=== PATIENT | female | born 1995 | race Caucasian/White ===

== ENCOUNTER 2017-04-18 00:59 | Inpatient (IN) | payer OTHER ==
[~2017-04-18] VITALS: Ht 167.6 cm; Wt 70.3 kg
[2017-04-18] MEDS ORDERED: Methylergonovine 0.2 mg/mL Inj IM PRN ×2 (01:35→19:55)
[2017-04-18] MEDS ORDERED: Sodium Chloride LOK Flush 10 mL Syringe IVFLUSH PRN (01:35)
[2017-04-18] MEDS ORDERED: Oxytocin 10 Unit/mL Inj IM PRN ×2 (01:35→19:55)
[2017-04-18] MEDS ORDERED: Oxytocin 30 Units/500 mL LR 30 UNITS in IV Premix 1 EACH IV PRN ×2 (01:35→19:55)
[2017-04-18] MEDS ORDERED: Hemorrhage Kit, Post Partum XX ONE ×2 (01:35→19:55)
[2017-04-18] MEDS ORDERED: Carboprost 250 mCg/mL Inj IM PRN ×2 (01:35→19:55)
[2017-04-18 02:26] LABS: Mean Corpuscular Hemoglobin 28.7 pg (27.0-35.0); Mean Corpuscular Volume 81.2 fL (81-100)
[2017-04-18] MEDS: Lactated Ringer's 1,000 ML IV PRN ×2 (02:49→13:12)
[2017-04-18] MEDS: fentaNYL-PF 50 mCg/mL 2 mL Inj IVPUSH PRN ×2 (02:50→04:25)
[2017-04-18] MEDS ORDERED: Lactated Ringer's 500 ML IV ONE (05:27)
--- NOTE | 2017-04-18 05:29 | PCM.HPANE ---
Patient Data Surgeon Admitting Provider:Grady Fernández MD Attending Provider:Grady Fernández MD Primary Care Physician:Grady Fernández MD Other Provider:Michelet Lowe Anesthesia Reason for Visit Term Labor TERM LABOR Ht/WT & BMI Body Mass Index Allergies Coded Allergies: azithromycin (Verified Adverse Reaction, Severe, vomitting, 04/17/17) Past Anesthesia History Anesthesia History: Denies:: Abnormal Airway, Anesthesia Reactions Diabetes History Hx Diabetes?: No Medications Hypertension Medication: No Home Meds Incl Beta Casie: No History History of ENT Problems?: No HEENT History: Denies:: Abnormal Airway Denture Type: None Teeth Condition: Within Normal Limits Hx of Heart Problems?: No Cardiovascular History: Denies:: Chest Pain Hypertension Hx of Respiratory Problem?: Yes Respiratory History: Denies:: Asthma Hx Neurologic Problems?: No Hx of GI Problems?: No Hx of Problems?: No Hx Musculoskeletal Problems?: No Hx Surgeries?: No Smoking Status: Former Smoker Stop/Bang LIAN Risk Assessment: Low Risk, <3 Yes Risk Assessment Category Category 1A: Patient has history of documented sleep apnea, and HAS NOT received any narcotic, sedative or anesthesia administration during this stay. Category 1B: Patient has history of documented sleep apnea, and HAS received any narcotic , sedative or anesthesia administration during this stay Category 2: Patient has SUSPECTED Obstructive Sleep Apnea, and HAS received any narcotic , sedative or anesthesia administration during this stay. Category 3: Patient has SUSPECTED Obstructive Sleep Apnea and HAS NOT received narcotic, sedative or anesthesia administration during this stay. Category 4: Outpatient in Procedural Areas with known sleep apnea or who screen positive for High Risk via the STOP/BANG questionnaire. Exam Exam General Appearance: Alert, Oriented X3, Cooperative, Moderate Distress (with contractions) HEENT/AIRWAY: MP 2 Lungs: Normal Air Movement Heart: Exam Unremarkable Meds/Labs/Diagnostics Labs Test 04/18/17 02:15 White Blood Count 18.6th/mm3 (3.8-10.1) Red Blood Count 4.04mil/mm3 (3.90-5.20) Hemoglobin 11.6g/dL (12.0-15.6) Hematocrit 32.8% (35.0-46.0) Mean Corpuscular Volume 81.2fL (81-100) Mean Corpuscular Hemoglobin 28.7pg (27.0-35.0) Mean Corpuscular Hemoglobin Concent 35.4% (32.0-37.0) Red Cell Distribution Width 13.9% (12.3-15.4) Platelet Count 144bil/L (150-400) Plan Impression Patient chart reviewed, patient interviewed and anesthestic plan with risks, benefits, and alternatives discussed, and informed consent obtained. NPO per Anesth. Guidelines: Yes ASA Physical Status: ASA1 Normal Healthy Anesthetic Plan: Epidural Bene/Risks/Altern/Consents: Yes HP Complete Prior to Induction: Yes Isrrael Colvin MD Apr 18, 2017 05:29
[2017-04-18] MEDS ORDERED: EPHEDrine Sulfate 50 mg/mL Inj IVPUSH PRN (05:30)
[2017-04-18] MEDS ORDERED: Ondansetron 2 mg/mL 2 mL Inj IVPUSH PRN (05:30)
[2017-04-18] MEDS ORDERED: fentaNYL-PF 50 mCg/mL 2 mL Inj IVPUSH PRN (05:30)
[2017-04-18] MEDS ORDERED: Atropine 1 mg/10 mL (Code) Syringe IVPUSH PRN (05:30)
[2017-04-18] MEDS: fentaNYL 2 mCg/mL-Bupiv 0.125% 100 ML EPIDURAL SCH ×2 (07:54→12:53)
[2017-04-18] MEDS: Lactated Ringer's 1,000 ML IV SCH ×3 (08:26→16:18)
[2017-04-18] MEDS ORDERED: Lactated Ringer's 1,000 ML IV SCH (19:53)
[2017-04-18] MEDS ORDERED: TdaP Vaccine 0.5 mL Inj IM ONE (19:55)
[2017-04-18] MEDS ORDERED: Benzocaine (Dermoplast) 20% 60 Gm Spray TOPICAL PRN (19:55)
[2017-04-18] MEDS ORDERED: Influenza (Adult) Vaccine 0.5 mL Syringe IM ONE (19:55)
[2017-04-18] MEDS ORDERED: LANOlin HPA 7 Gm Ointment TOPICAL PRN (19:55)
[2017-04-18] MEDS ORDERED: Measles-Mumps-Rubella Vaccine 0.5 mL Inj SUBQ ONE (19:55)
[2017-04-18] MEDS ORDERED: Witch Hazel-Glycerin Pads TOPICAL PRN (19:55)
[2017-04-18] MEDS ORDERED: Ampicillin-Sulbactam Inj 3,000 MG in 0.9% Sodium Chloride 100 ML IV ONE (19:55)
--- NOTE | 2017-04-18 20:21 | PCM.ANEP1 ---
Post Anesthesia PACU Phase 1 Assessment Anesthetic Administered: Epidural Level of Alertness: Awake, talking HUITRON's with Equal Strength: Yes Pain: No Pain Scale Score: 4 Nausea or Vomiting: No CV Function & Hydration Stable: Yes Airway Device: Oxygen Delivery: Room Air Lungs: Normal Air Movement Dermatome Level: Full Sensation PACU Phase 2 Assessment Complications: No Follow up Care: N/A Patient Instructions Provided: Yes Madan Gabriel MD Apr 18, 2017 20:21
[2017-04-18] MEDS: HYDROcodone-APAP 5-325 mg Tablet PO PRN (21:15)
[2017-04-19] MEDS: HYDROcodone-APAP 5-325 mg Tablet PO PRN (05:16)
[2017-04-19 07:38] LABS: Mean Corpuscular Hemoglobin 28.8 pg (27.0-35.0); Mean Corpuscular Volume 83.4 fL (81-100)
--- NOTE | 2017-04-19 19:31 | PCM.DIOB ---
Obstetrical Disch Instruction Dates of Hospitalization Date of Hospital Admission Apr 18, 2017 at 01:32 Providers Admitting Physician: Grady Fernández MD Primary Care Physician: Grady Fernández MD Attending Physician: Grady Fernández MD Discharge Diagnosis Problems: (1) Status: Acute ICD Code: Z33.1 Diet Discharge Diet: No restrictions Activity Discharge Activity-General: Pelvic Rest for 6 weeks Dressing and Incisional Care Hygiene: May shower, Perineal care, Sitz bath, Dermoplast spray, Witch Colette pads, Ice Follow Up Plan Follow-up appointment: Weeks (Followup in 6 weeks for checkup. Please call Office at noon on Saturday to schedule appointment.) Call your provider for: Fever or Chills, Shortness of breath, Heavy vaginal bleeding, Red painful breasts Grady Fenrández MD Apr 19, 2017 19:31
[2017-04-19] MEDS ORDERED: DOCU-41 PO (19:32)
[2017-04-19] MEDS ORDERED: IBUP-1827 PO (19:32)
[2017-04-19 20:44] VITALS: BP 131/95; PULSE 75; RESP 16
--- NOTE | 2017-04-21 00:45 | PROG NOTE ---
[address] [address] PROGRESS NOTE PATIENT: DANIEL CAAL : 1995 MR#: [id number] ADMIT: 04/18/2017 JOB ID: [id number] [facility] NOTE: DATE: 04/18/2017 TIME: 2200 hours. SUBJECTIVE: The patient was admitted to [facility] with ruptured membranes in early labor at term. Ultimately, labor progressed somewhat, and there were noted some heart rate drops. Subsequent artificial rupture of forebag was then accomplished, and a small amount of clear fluid was recovered. Head descended with greater pressure against the cervix and labor continued to progress. Note that heart rate drops continued at times, and were somewhat progressive intermittently, requiring multiple position changes, oxygen therapy at times, ongoing intravenous hydration, and intrauterine saline infusion ranging between 100-180 cc/h after 500 cc bolus. It was felt that there was umbilical cord being stretched and/or compressed at some site(s). With epidural ongoing for pain management and with intrauterine pressure catheter in place and Pitocin augmentation occurring, labor progressed until finally completely dilated. The patient then learned to push well and head steadily descended until about +3 station, near . heart rate drops during terminal 2nd stage were becoming greater and longer consistent with deep variables, and it was felt prudent to expedite delivery with the assistance of vacuum. Vacuum was explained, along with its benefits and risks. Vacuum was then applied over the head, where there was caput. scalp electrode was removed, as was intrauterine pressure catheter, and the patient pushed with mild to moderate traction throughout a contraction. Head then almost reached , and single pull with the next contraction then resulted in and vacuum was removed. The patient was then allowed simply to push out the head, followed by delivery of the shoulders, body and extremities. There was noted to be umbilical cord around the lower body and around each of the lower extremities, not tight. Baby was active, crying and vigorous, and handed to mother for bonding and further nurse management. Machine Wedger was in attendance at delivery. After a minute, umbilical cord was clamped and cut, and cord blood was obtained for routine studies. Betadine solution was then used to cleanse the vulvovaginal region and a small midline 2nd-degree perineal laceration was noted and easily repaired with 3-0 chromic suture. Hemostasis was noted to be complete and there was no hematoma formation. Over time, placenta gradually delivered, although membranes were rather adherent , however, and time was given for them to gradually separate. Once delivered and inspected, I could not be confident that all membranes had indeed been expelled , and thus, the intrauterine exam and curettage portion of the procedure began. Under epidural anesthesia, hand was reached into the uterus and there were noted significantly adherent membranes high in the uterine cavity. Membranes were grasped and gradually teased out of the uterine cavity, and then finger curettage was accomplished with return of no additional membranes. Gentle sharp curettage with a banjo curette was then accomplished, with return of no additional membranous tissue. Uterus then contracted well with massage and ongoing intravenous Pitocin infusion. Bleeding was minimal at this point. Instrument, needle, and sponge counts were all found to be correct. It certainly is anticipated that mother and baby will do very well during the timeframe. Note that a single dose of intravenous antibiotics (Unasyn) was ordered to help prevent infection in the setting of the intrauterine manipulation/membrane extraction/ curettage. MTDD
--- NOTE | 2017-04-21 16:49 | HP ---
[address] [address] HISTORY AND PHYSICAL PATIENT: DANIEL CAAL : 1995 MR#: [id number] ADMIT: 04/18/2017 JOB ID: [id number] [facility] NOTE: DATE: 04/18/2017 at 0800 hours. The patient is a 22-year-old, G2, P0, AB 1, single woman followed prenatally at [facility], see record for details. Due date is April 21, 2017, placing the patient at 39 and 4/7 weeks of gestation on admission. She experienced rupture of membranes and onset of labor during the night and was admitted. In summary, then, this patient was admitted to [facility] at term with ruptured membranes by ROM sure test plus in labor. PHYSICAL EXAMINATION: On admission, height, weight and blood pressure most recently in the office were 66 inches, 164 pounds and 120/80, respectively. Neck: No thyromegaly. Lungs: Clear to auscultation and percussion. Heart: Regular in rate and rhythm. Abdomen: Fundal height 37.5 cm, positive heartbeat, vertex presentation. Pelvic examination: See serial nurse examinations in the record, plus positive ROM sure test indicating ruptured membranes. DIAGNOSTIC DATA: See admission CBC result. IMPRESSION: 1. A 39 and 4/7 weeks . 2. Spontaneous rupture of membranes. 3. Labor. 4. Mild anemia noted during . 5. Up-to-date with Tdap. 6. test. 7. Rubella immune status. 8. Group B strep negative. 9. Planning Mirena intrauterine device for contraception. 10. Prior smoker, stopped, with positive test. 11. Prior 1st trimester miscarriage, no D and C, now current . 12. Depression history, no medication use currently. 13. Erythromycin intolerance--nausea and vomiting. 14. Family history of diabetes (grandmother), breast cancer, defects (reportedly the patient's father's 2nd cousin and multiple gestations. PLAN: The patient was admitted to [facility] at 39-4/7 weeks of gestation with ruptured membranes and labor, anticipating vaginal delivery.
--- NOTE | 2017-04-23 06:54 | DIS ---
[address] [address] DISCHARGE SUMMARY PATIENT: DANIEL CAAL : 1995 MR#: [id number] ADMIT: 04/18/2017 JOB ID: [id number] DIS: 04/19/2017 DISCHARGE DIAGNOSES: 1. Term , delivered. 2. Retained membranes. 3. Anemia. PROCEDURES PERFORMED: 1. Vaginal delivery. 2. Repair of perineal laceration. 3. Manual extraction of membranes/ curettage. HOSPITAL COURSE: This patient was admitted to [facility] and ultimately underwent procedures as described on April 18, 2017. During the timeframe, the patient did well, with stable vitals, afebrile, voiding, ambulating, with reasonable bleeding and pain management, and handling baby well. Note that hemoglobin dropped to 9.2. The patient was interested in discharge to home on the first day, and her request was granted. She will stay as a boarder mom as feeding issues are ongoing with baby. DISCHARGE PROGRAM: Patient will call p.r.n., yet otherwise she will follow up for appointment at six weeks . She will observe pelvic rest for six weeks. DISCHARGE MEDICATIONS: Include ibuprofen and Colace, prescriptions written. Patient also will use iron supplement and vitamin, both of which she has at home.
== END 2017-04-19 23:10 | disposition home or self-care (01) | DRG 767 ==
LOC: FBCO 00:59 → FBC 01:32
PROVIDERS: ADMIT Obstetrics & Gynecology; ATTEND Obstetrics & Gynecology
PROC: 10D07Z6 Extraction of Products of Conception, Vacuum, Via Natural or Artificial Opening (ICD-10-PCS; principal; 2017-04-18)
PROC: 10D17ZZ Extraction of Products of Conception, Retained, Via Natural or Artificial Opening (ICD-10-PCS; 2017-04-18)
PROC: 0KQM0ZZ Repair Perineum Muscle, Open Approach (ICD-10-PCS; 2017-04-18)
PROC: 10907ZC Drainage of Amniotic Fluid, Therapeutic from Products of Conception, Via Natural or Artificial Opening (ICD-10-PCS; 2017-04-18)
PROC: 10H073Z Insertion of Monitoring Electrode into Products of Conception, Via Natural or Artificial Opening (ICD-10-PCS; 2017-04-18)
DX: O70.1 Second degree perineal laceration during delivery (principal); Z37.0 Single live birth; Z3A.39 39 weeks gestation of pregnancy; O73.0 Retained placenta without hemorrhage